=== PATIENT | female | born 1960 | race Caucasian/White ===

== ENCOUNTER → 2021-03-12 14:02 | Outpatient (POV) | payer MEDICARE, SELFPAY ==
[2021-03-12 14:24] VITALS: BP 165/68; PULSE 99; RESP 20; TEMP 36.6; O2SAT 98; BMI 31.3
--- NOTE | 2021-03-12 14:58 | HMH.PMCON ---
Assessment and Plan (1) Chronic abdominal pain Status: Acute Category: Medical Code(s): R10.9 - Unspecified abdominal pain; G89.29 - Other chronic pain - Assessment and plan all Dx Assessment and Plan for all problems:: I talked to this patient about taking over her intrathecal therapy. We will order home refill with [facility] and add bupivacaine to her intrathecal infusion. This will be intrathecal Dilaudid 25 mg/mL plus bupivacaine 5 mg/mL. We will decrease her intrathecal Dilaudid dose to 12 mg/day. She is also to start weaning her oral Dilaudid. We will see her back in 1 month at that time hopefully she will be off her oral Dilaudid completely and refills with [facility] with intrathecal Dilaudid/bupivacaine and decreased to 12 mg/day. HPI - Data of Consult Patient: new to practice Consult date: 03/12/21 Requesting Physician: Petr Euceda MD Primary Care Provider: Oleg Clark MD - Consult Narrative Reason for consult: To talk about management of intrathecal pain pump History of present illness: Ms. Cook is a 61 year old female who has an intrathecal Dilaudid pain pump in place. She is currently going at 13 mg/day. She has several hernias and chronic abdominal pain. Her pump was placed for her abdominal pain. This is helping tremendously. She is also on oral Dilaudid in addition to her pump. She has had her pump for approximately 12 years. This is her second [employer] pump. Currently she is on intrathecal Dilaudid 25 mg/mL at 13 mg/day. In addition to this she takes 4 mg twice a day of oral Dilaudid. I have talked to the patient extensively about her intrathecal therapy and changes we would make if we took over management. I did tell her that we will not prescribe any oral narcotics on top of her pump and that she needed to wean off of her Dilaudid. I also told her that we would anticipate weaning her intrathecal Dilaudid infusion and ideally I had like to be around 7 to 8 mg/day. We will add bupivacaine to her infusion to help with weaning of the narcotic. CC: Petr Euceda MD [facility] History I have reviewed the patient's past medical history: Yes Medical History: Reports:: Cancer (breast ca), Hypertension Denies:: Diabetes Mellitus Type 1, Diabetes Mellitus Type 2, MRSA *Have you ever received a pneumonia vaccine?: No *Have you received a flu vaccine this season?: Yes Laterality Cases: Bilateral: Mastectomy Other Surgeries: Yes: Cholecystectomy, Hysterectomy-Total, Other (pain pump implant) Amputation: No Fractures: No - *Social History Smoking Status: Smoker, status unknown Alcohol Intake: never *Occupational Status:: other Housing: house Household Members: other *Travel in the last 8 weeks: None Family Hx:: Unable to obtain Review of Systems - Review of Systems Review of systems:: pertinent systems reviewed and negative unless documented below - *Gastrointestinal Reports abdominal pain, Reports bloating, Reports constipation Meds Home Medications Medication Instructions Recorded Confirmed Type Hydromorphone HCl [Dilaudid 4mg 4 mg PO BID 03/12/21 03/12/21 History Tab] Hydromorphone HCl [Hydromorphone 13 mg IT CONT 03/12/21 03/12/21 History 1mg/ml inj] Ibuprofen 400 mg PO BID 03/12/21 03/12/21 History Metoclopramide HCl [Reglan 10mg 10 mg PO QIDP PRN 03/12/21 03/12/21 History Tab] Metoprolol Tartrate [Lopressor 100 100 mg PO BID 03/12/21 03/12/21 History mg Tablets] Naloxone HCl [Narcan] 4 mg NS DAILY PRN 03/12/21 03/12/21 History Nitroglycerin 0.4 mg SL DAILY PRN 03/12/21 03/12/21 History Pantoprazole Sodium [Protonix 40mg 40 mg PO DAILY 03/12/21 03/12/21 History tablet] Promethazine HCl [Phenergan 25mg 25 mg PO Q4HP PRN 03/12/21 03/12/21 History tab] Temazepam [Restoril 30mg Capsule] 30 mg PO HS 03/12/21 03/12/21 History lisinopriL [Lisinopril] 10 mg PO DAILY 03/12/21 03/12/21 History Allergies Allergy/AdvReac Type Severity Reaction Status Date /
== END ==
PROVIDERS: PCP Family Medicine; Visit Provider Anesthesiology
DX: R10.9 Unspecified abdominal pain (principal); G89.29 Other chronic pain
CPT/HCPCS: 99202; G0463

== ENCOUNTER → 2021-12-17 12:56 | Outpatient (POV) | payer MEDICARE, SELFPAY ==
[2021-12-17 14:00] VITALS: BP 137/69; PULSE 68; RESP 20; O2SAT 96; BMI 24.3
--- NOTE | 2021-12-17 14:47 | HMH.PAINSOAP ---
[facility] Pain Management SOAP Note Subjective:: This patient is a pleasant 61-year-old white female who we are treating for chronic abdominal pain. She does have an intrathecal Dilaudid/bupivacaine pain pump in place. She is currently going at 13 mg/day. She also has bupivacaine at 5 mg/mL. She is asking about increasing her bupivacaine concentration to help further with pain symptoms as she has come completely off of her oral Dilaudid pills at this time. Overall she is doing well with her pump. She does not have any significant side effects. Objective:: Alert and oriented x3 no acute distress. Patient does have an antalgic gait. Motor strength of the lower extremities is 5/5. There is no gross sensory deficit. Assessment:: Chronic abdominal pain. Degenerative disc disease of lumbar spine with lumbar radiculopathy symptoms. Plan:: We will communicate with [facility] home refill to increase her bupivacaine concentration to 10 mg/mL. We will follow-up with her in 3 months unless she needs us before then. We will continue her hydromorphone at 25 mg/mL and increase bupivacaine to 10 mg/mL. We will continue her daily dose at 13 mg/day. If she has any problems questions she is to call us back in the pain clinic. [facility] History Medical History: Reports:: Cancer (breast ca), Hypertension Denies:: Diabetes Mellitus Type 1, Diabetes Mellitus Type 2, MRSA *Have you ever received a pneumonia vaccine?: No *Have you received a flu vaccine this season?: No Laterality Cases: Bilateral: Mastectomy Other Surgeries: Yes: Cholecystectomy, Hysterectomy-Total, Other (pain pump implant) Amputation: No Fractures: No - *Social History Smoking Status: Smoker, status unknown Alcohol Intake: never *Occupational Status:: retired Housing: house Household Members: other *Travel in the last 8 weeks: None Family Hx:: Unable to obtain
== END ==
PROVIDERS: PCP Family Medicine; Visit Provider Anesthesiology
DX: R10.9 Unspecified abdominal pain (principal); M51.16 Intervertebral disc disorders with radiculopathy, lumbar region
CPT/HCPCS: 99212; G0463

== ENCOUNTER 2022-10-04 11:01 | Day surgery (SDC) | payer MEDICARE, SELFPAY ==
[2022-10-04 11:56] VITALS: BP 141/79; PULSE 84; RESP 18; TEMP 36.9; O2SAT 95; BMI 26.6
--- NOTE | 2022-10-04 12:08 | EXP.PAIN.PRO ---
Procedure Date: 10/04/22 Time: 12:00 Anesthesiologist:: Bruce Baxter CRNA Complications:: None Pre-procedure Diagnosis:: Degenerative disc disease lumbar spine multilevels. Lumbar radiculopathy Post-procedure Diagnosis:: Same. Indications for Procedure:: Patient is a pleasant 59-year-old female that comes our clinic for intrathecal pain pump interrogation and refill. She is currently being treated with Dilaudid 25 mg/mL and bupivacaine 10 mg/mL. She is currently being managed with a rate of 13.0 to 4 mg/day of hydromorphone and 5.210 mg/day of bupivacaine. Patient does not request any increase in her pump today. She does not report any side effects from the current settings. Procedure Details:: Details of the procedure were explained to the patient. The patient was taken placed in the sitting position on the fluoroscopy table. The area of the pump was cleaned using chlorhexidine as a cleansing solution. The pump was interrogated. The pump was accessed with ease using 22-gauge inch and half needle. 6 mL of solution was withdrawn and discarded appropriately. 4.8 mL was expected. Patient was then filled incrementally with 20 cc of hydromorphone 25 mg/mL as well as bupivacaine 10 mg/mL. Plan and Disposition:: Patient was discharged without incident.
[2022-10-04 12:13] VITALS: BP 165/79; PULSE 75; RESP 18; O2SAT 95
== END 2022-10-04 12:13 | disposition home or self-care (01) ==
PROVIDERS: Visit Provider Nurse Anesthetist, Certified Registered
DX: Z45.1 Encounter for adjustment and management of infusion pump (principal); M51.16 Intervertebral disc disorders with radiculopathy, lumbar region
CPT/HCPCS: 95991